=== PATIENT | male | born 1930 | race Caucasian/White ===

== ENCOUNTER 2018-07-14 08:34 | Emergency (ER) | payer MEDICARE ==
[~2018-07-14] VITALS: Ht 172.7 cm; Wt 68.2 kg
[~2018-07-14 08:34] MED LIST: GLUCOPHAGE500 MG PO; GLUCOTROL 5 MG T5 MG PO; PAXIL20 MG PO; RESTORIL15 MG PO; SEROQUEL25 MG PO; VALIUM 2 MG TAB2 MG PO; VIBRAMYCIN 100100 MG PO; ZOCOR80 MG PO
[2018-07-14 08:39] VITALS: Ht 172.7 cm; Wt 68.2 kg
[2018-07-14 09:58] LABS: BASOPHILS 0.3 % (0-2); EOSINOPHILS 4.3 % (0-7); HEMATOCRIT 42.4 % (42.0-54.0); HEMOGLOBIN 14.5 g/dL (13.5-17.5); IMMATURE GRANULOCYTES 0.1 % (0-5); MCH 32.4 pg (26.0-34.0); MCHC 34.2 g/dL (31.0-37.0); MCV 94.6 fL (80.0-100.0); MEAN PLATELET VOLUME 10.4 fL (7.4-10.4); NEUTROPHILS 75.3 % (40-80); RBC 4.48 10x6/uL (4.20-6.10); RDW 13.1 % (11.5-14.5); WBC 8.8 10x3/uL (4.8-10.8)
[2018-07-14 10:15] LABS: PLATELET COUNT 167 10x3/uL (130-400)
[2018-07-14 10:18] LABS: ALBUMIN 3.7 g/dL (3.4-5.0); ALKALINE PHOSPHATASE 83 U/L (46-116); ALT (SGPT) 26 U/L (10-68); BILIRUBIN - TOTAL 0.67 mg/dL (0.2-1.3); CALC OSMOLALITY 282 mosm/kg (275-300); CARBON DIOXIDE 30.1 mmol/L (21.0-32.0); CHLORIDE - SERUM 102 mmol/L (98-107); POTASSIUM - SERUM 3.5 mmol/L (3.5-5.1); PROTEIN - SERUM 7.8 g/dL (6.4-8.2); SODIUM 139 mmol/L (136-145); UREA NITROGEN 15 mg/dL (7-18); eGFR NON AFRICAN AMERICAN 75 mL/min (90-120)
[2018-07-14 10:21] LABS: GLUCOSE 172 mg/dL (74-106)
[2018-07-14 10:32] LABS: APPEARANCE HAZY (CLEAR); BILIRUBIN NEGATIVE (NEGATIVE); COLOR COLORLESS (YELLOW); GLUCOSE 100 mg/dL (NEGATIVE); KETONE NEGATIVE (NEGATIVE); NITRITE NEGATIVE (NEGATIVE); PROTEIN NEGATIVE (NEGATIVE); SPECIFIC GRAVITY 1.005 (1.005-1.020); UROBILINOGEN NORMAL (NORMAL)
[2018-07-14 10:33] LABS: BACTERIA FEW /hpf (NONE SEEN); EPITHELIAL CELLS 0-5 /hpf (0-5); WHITE CELLS - URINE 0-5 /hpf (0-5)
[2018-07-14 17:06] VITALS: BP 146/84
== END 2018-07-14 15:50 | disposition home or self-care (01) ==
LOC: D.ER 08:34
PROVIDERS: Family Medicine
DX: N28.89 Other specified disorders of kidney and ureter (principal); R10.9 Unspecified abdominal pain; R31.9 Hematuria, unspecified

== ENCOUNTER 2018-07-14 21:47 | Emergency (ER) | payer MEDICARE ==
[~2018-07-14] VITALS: Ht 172.7 cm; Wt 81.8 kg
[2018-07-14 21:56] VITALS: Ht 172.7 cm; Wt 81.8 kg
[2018-07-14 23:48] VITALS: BP 129/73
== END 2018-07-14 23:49 ==
LOC: D.ER 21:47
DX: R41.0 Disorientation, unspecified (principal); F03.90 Unspecified dementia, unspecified severity, without behavioral disturbance, psychotic disturbance, mood disturbance, and anxiety

== ENCOUNTER 2018-08-06 23:37 | Emergency (ER) | payer MEDICARE ==
[~2018-08-06] VITALS: Ht 172.7 cm; Wt 97.7 kg
[2018-08-06 23:40] VITALS: Ht 172.7 cm; Wt 97.7 kg
[2018-08-07 03:05] VITALS: BP 174/83
[2018-08-08] MEDS ORDERED: LEVAQUIN750 MG PO (13:04)
== END 2018-08-07 03:05 | disposition home or self-care (01) ==
LOC: D.ER 23:37
DX: M25.561 Pain in right knee (principal); W18.31XA Fall on same level due to stepping on an object, initial encounter; Y93.89 Activity, other specified; Y92.129 Unspecified place in nursing home as the place of occurrence of the external cause

== ENCOUNTER 2018-08-08 10:21 | Emergency (ER) | payer MEDICARE ==
[~2018-08-08] VITALS: Ht 172.7 cm; Wt 86.4 kg
[2018-08-08 10:26] VITALS: Ht 172.7 cm; Wt 86.4 kg
[2018-08-08 10:50] LABS: BASOPHILS 0.4 % (0-2); EOSINOPHILS 1.8 % (0-7); HEMATOCRIT 37.1 % (42.0-54.0); HEMOGLOBIN 12.6 g/dL (13.5-17.5); IMMATURE GRANULOCYTES 0.1 % (0-5); LYMPHOCYTES 24.8 % (15-50); MCH 31.7 pg (26.0-34.0); MCV 93.2 fL (80.0-100.0); MEAN PLATELET VOLUME 10.4 fL (7.4-10.4); MONOCYTES 10.1 % (2-11); NEUTROPHILS 62.8 % (40-80); PLATELET COUNT 144 10x3/uL (130-400); RBC 3.98 10x6/uL (4.20-6.10); WBC 7.2 10x3/uL (4.8-10.8)
[2018-08-08 10:58] LABS: APTT 27.2 SECONDS (22.8-39.4); INR 1.07 (0.85-1.17); PROTIME 13.4 SECONDS (11.6-15.0)
[2018-08-08 11:20] LABS: ALBUMIN 3.3 g/dL (3.4-5.0); ALKALINE PHOSPHATASE 77 U/L (46-116); ALT (SGPT) 24 U/L (10-68); BILIRUBIN - TOTAL 0.54 mg/dL (0.2-1.3); CALC OSMOLALITY 280 mosm/kg (275-300); CALCIUM 8.3 mg/dL (8.5-10.1); CARBON DIOXIDE 28.9 mmol/L (21.0-32.0); CHLORIDE - SERUM 103 mmol/L (98-107); CREATININE - SERUM 0.9 mg/dL (0.6-1.3); GLUCOSE 196 mg/dL (74-106); POTASSIUM - SERUM 3.8 mmol/L (3.5-5.1); SODIUM 137 mmol/L (136-145); UREA NITROGEN 19 mg/dL (7-18); eGFR NON AFRICAN AMERICAN 85 mL/min (90-120)
[2018-08-08 11:31] LABS: CKMB 4.2 U/L (0.0-3.6); CREATINE KINASE 202 UL (21-232); MAGNESIUM - SERUM 1.9 mg/dL (1.8-2.4); THYROID STIMULATING HORMONE 2.53 uIU/mL (0.36-3.74); TROPONIN-I 0.021 ng/mL (0.000-0.060)
[2018-08-08 11:32] LABS: UDS - AMPHET NEGATIVE QUAL (NEGATIVE); UDS - BARB NEGATIVE QUAL (NEGATIVE); UDS - BENZO NEGATIVE QUAL (NEGATIVE); UDS - COCAINE NEGATIVE QUAL (NEGATIVE); UDS - OPIATE NEGATIVE QUAL (NEGATIVE); UDS - PCP NEGATIVE QUAL (NEGATIVE); UDS - THC NEGATIVE QUAL (NEGATIVE)
[2018-08-08 11:34] LABS: APPEARANCE CLEAR (CLEAR); BILIRUBIN NEGATIVE (NEGATIVE); COLOR YELLOW (YELLOW); GLUCOSE 100 mg/dL (NEGATIVE); KETONE NEGATIVE (NEGATIVE); NITRITE NEGATIVE (NEGATIVE); PROTEIN NEGATIVE (NEGATIVE); UROBILINOGEN NORMAL (NORMAL)
[2018-08-08 11:35] LABS: WHITE CELLS - URINE OCC /hpf (0-5)
[2018-08-08] MEDS ORDERED: LEVAQUIN750 MG PO (13:04)
[2018-08-08 13:36] VITALS: BP 178/76
== END 2018-08-08 13:36 | disposition other institution (70) ==
LOC: D.ER 10:21
PROVIDERS: Family Medicine
DX: J18.9 Pneumonia, unspecified organism (principal)

== ENCOUNTER 2018-08-21 00:54 | Emergency (ER) | payer MEDICARE ==
[~2018-08-21] VITALS: Ht 172.7 cm; Wt 84.1 kg
[~2018-08-21 00:54] MED LIST changes: +LEVAQUIN750 MG PO
[2018-08-21 00:57] VITALS: Ht 172.7 cm; Wt 84.1 kg
[2018-08-21 01:16] LABS: BASOPHILS 0.5 % (0-2); EOSINOPHILS 7.3 % (0-7); HEMATOCRIT 37.9 % (42.0-54.0); HEMOGLOBIN 12.8 g/dL (13.5-17.5); IMMATURE GRANULOCYTES 0.3 % (0-5); LYMPHOCYTES 32.9 % (15-50); MCH 31.8 pg (26.0-34.0); MCHC 33.8 g/dL (31.0-37.0); MCV 94.3 fL (80.0-100.0); MEAN PLATELET VOLUME 9.9 fL (7.4-10.4); MONOCYTES 12.5 % (2-11); NEUTROPHILS 46.5 % (40-80); PLATELET COUNT 163 10x3/uL (130-400); RBC 4.02 10x6/uL (4.20-6.10); RDW 13.2 % (11.5-14.5); WBC 7.8 10x3/uL (4.8-10.8)
[2018-08-21 01:24] LABS: INR 1.09 (0.85-1.17); PROTIME 13.6 SECONDS (11.6-15.0)
[2018-08-21 01:37] LABS: ALBUMIN 3.5 g/dL (3.4-5.0); ALKALINE PHOSPHATASE 67 U/L (46-116); ALT (SGPT) 22 U/L (10-68); BILIRUBIN - TOTAL 0.48 mg/dL (0.2-1.3); CALC OSMOLALITY 282 mosm/kg (275-300); CARBON DIOXIDE 29.5 mmol/L (21.0-32.0); CHLORIDE - SERUM 104 mmol/L (98-107); CREATININE - SERUM 0.8 mg/dL (0.6-1.3); GLUCOSE 129 mg/dL (74-106); POTASSIUM - SERUM 4.1 mmol/L (3.5-5.1); PROTEIN - SERUM 7.2 g/dL (6.4-8.2); SODIUM 140 mmol/L (136-145); UREA NITROGEN 17 mg/dL (7-18); eGFR NON AFRICAN AMERICAN > 90 mL/min (90-120)
[2018-08-21] MEDS ORDERED: GLUCOTROL 5 MG T5 MG PO (01:45)
[2018-08-21] MEDS ORDERED: SOLARAZE100 GM TP (01:45)
[2018-08-21] MEDS ORDERED: MOBIC7.5 MG PO (01:46)
[2018-08-21] MEDS ORDERED: GLUCOPHAGE500 MG PO (01:47)
[2018-08-21] MEDS ORDERED: RIVASTIGMINE1.5 MG PO (01:48)
[2018-08-21] MEDS ORDERED: ULTRAM50 MG PO (01:49)
[2018-08-21] MEDS ORDERED: TRAZODONE HCL150 MG PO (01:51)
[2018-08-21 01:52] LABS: CKMB 3.3 U/L (0.0-3.6); CREATINE KINASE 149 UL (21-232); MAGNESIUM - SERUM 1.9 mg/dL (1.8-2.4); PRO BNP 424 pg/mL (0-450); THYROID STIMULATING HORMONE 4.84 uIU/mL (0.36-3.74)
[2018-08-21 01:56] LABS: TROPONIN-I < 0.017 ng/mL (0.000-0.060)
[2018-08-21 02:12] LABS: UDS - AMPHET NEGATIVE QUAL (NEGATIVE); UDS - BARB NEGATIVE QUAL (NEGATIVE); UDS - BENZO NEGATIVE QUAL (NEGATIVE); UDS - COCAINE NEGATIVE QUAL (NEGATIVE); UDS - OPIATE POSITIVE QUAL (NEGATIVE); UDS - PCP NEGATIVE QUAL (NEGATIVE); UDS - THC NEGATIVE QUAL (NEGATIVE)
[2018-08-21 02:15] LABS: APPEARANCE HAZY (CLEAR); BILIRUBIN NEGATIVE (NEGATIVE); COLOR YELLOW (YELLOW); GLUCOSE NEGATIVE (NEGATIVE); KETONE NEGATIVE (NEGATIVE); NITRITE NEGATIVE (NEGATIVE); PROTEIN TRACE mg/dL (NEGATIVE); RED CELLS - URINE >50 /hpf (0-5); UROBILINOGEN NORMAL (NORMAL)
[2018-08-21 04:49] VITALS: BP 156/89
== END 2018-08-21 04:48 | disposition other institution (70) ==
LOC: D.ER 00:54
PROVIDERS: Family Medicine
DX: R60.9 Edema, unspecified (principal)

== ENCOUNTER 2018-08-22 02:29 | Emergency (ER) | payer MEDICARE ==
[~2018-08-22] VITALS: Ht 172.7 cm; Wt 84.1 kg
[~2018-08-22 02:29] MED LIST changes: +MOBIC7.5 MG PO; +RIVASTIGMINE1.5 MG PO; +SOLARAZE100 GM TP; +TRAZODONE HCL150 MG PO; +ULTRAM50 MG PO
[2018-08-22 02:30] VITALS: Ht 172.7 cm; Wt 84.1 kg
[2018-08-22 05:01] VITALS: BP 145/60
== END 2018-08-22 05:02 | disposition home or self-care (01) ==
LOC: D.ER 02:29
DX: S01.01XA Laceration without foreign body of scalp, initial encounter (principal); W18.30XA Fall on same level, unspecified, initial encounter; Y93.89 Activity, other specified; Y92.129 Unspecified place in nursing home as the place of occurrence of the external cause; M54.2 Cervicalgia

== ENCOUNTER → 2018-08-25 10:12 | Outpatient (CLI) | payer MEDICARE ==
[2018-08-22 02:30] VITALS: BMI 28.1
== END | disposition home or self-care (01) ==
LOC: D.NM 08-24 10:00 → D.CT 08-24 11:00 → D.NM 10:12
PROVIDERS: ATTEND Urology
DX: C64.9 Malignant neoplasm of unspecified kidney, except renal pelvis (principal); N28.89 Other specified disorders of kidney and ureter

== ENCOUNTER 2020-01-23 12:26 | Inpatient (IN) | payer MEDICARE ==
[~2020-01-23] VITALS: Ht 172.7 cm; Wt 84.8 kg
[2020-01-23 12:44] VITALS: BP 115/63
[2020-01-23] MEDS ORDERED: LIPITOR10 MG PO (12:49)
[2020-01-23] MEDS ORDERED: BUSPAR5 MG PO (12:49)
[2020-01-23] MEDS ORDERED: HYDROCODON-ACE1 EAC7 (12:50)
[2020-01-23] MEDS ORDERED: SENNA LAXATIVE8.6 MG (12:51)
[2020-01-23] MEDS ORDERED: PAXIL40 MG PO (12:51)
[2020-01-23] MEDS ORDERED: BUPROPION HCL75 MG PO (12:52)
[2020-01-23 13:30] LABS: CALC OSMOLALITY 303 mosm/kg (275-300); CALCIUM 8.6 mg/dL (8.5-10.1); CARBON DIOXIDE 18.4 mmol/L (21.0-32.0); CHLORIDE - SERUM 105 mmol/L (98-107); CREATININE - SERUM 3.5 mg/dL (0.6-1.3); GLUCOSE 154 mg/dL (74-106); POTASSIUM - SERUM 5.4 mmol/L (3.5-5.1); SODIUM 141 mmol/L (136-145); UREA NITROGEN 69 mg/dL (7-18); eGFR NON AFRICAN AMERICAN 18 mL/min (90-120)
[2020-01-23 13:37] LABS: HEMATOCRIT 37.7 % (42.0-54.0); HEMOGLOBIN 12.5 g/dL (13.5-17.5); MCH 30.1 pg (26.0-34.0); MCHC 33.2 g/dL (31.0-37.0); MCV 90.8 fL (80.0-100.0); MEAN PLATELET VOLUME 11.2 fL (7.4-10.4); PLATELET COUNT 109 10x3/uL (130-400); RBC 4.15 10x6/uL (4.20-6.10); RDW 13.3 % (11.5-14.5); WBC 21.3 10x3/uL (4.8-10.8)
[2020-01-23 13:41] LABS: APTT 36.6 SECONDS (22.8-39.4); INR 1.53 (0.85-1.17); PROTIME 18.3 SECONDS (11.6-15.0)
[2020-01-23 13:54] LABS: ALBUMIN 2.4 g/dL (3.4-5.0); ALKALINE PHOSPHATASE 113 U/L (30-120); ALT (SGPT) 65 U/L (10-68); BILIRUBIN - TOTAL 0.87 mg/dL (0.2-1.3); CKMB 49.6 U/L (0.0-3.6); MAGNESIUM - SERUM 1.6 mg/dL (1.8-2.4); PROTEIN - SERUM 7.1 g/dL (6.4-8.2); THYROID STIMULATING HORMONE 2.24 uIU/mL (0.36-3.74)
[2020-01-23 13:55] LABS: CREATINE KINASE 7 UL (21-232)
[2020-01-23 14:05] LABS: BACTERIA MANY HPF (NONE SEEN); BILIRUBIN NEGATIVE (NEGATIVE); EPITHELIAL CELLS RARE /hpf (0-5); KETONE SMALL mg/dL (NEGATIVE); NITRITE NEGATIVE (NEGATIVE); UDS - AMPHET NEGATIVE QUAL (NEGATIVE); UDS - BARB NEGATIVE QUAL (NEGATIVE); UDS - BENZO NEGATIVE QUAL (NEGATIVE); UDS - COCAINE NEGATIVE QUAL (NEGATIVE); UDS - OPIATE NEGATIVE QUAL (NEGATIVE); UDS - PCP NEGATIVE QUAL (NEGATIVE); UDS - THC NEGATIVE QUAL (NEGATIVE); UROBILINOGEN NORMAL mg/dL (< 2); WHITE CELLS - URINE >50 HPF (0-1)
[2020-01-23 14:06] LABS: AMORPHOUS SEDIMENT <1+ LPF (NONE SEEN)
[2020-01-23 15:28] LABS: LYMPHOCYTES 8 % (15-50); MONOCYTES 4 % (2-11); NEUTROPHILS 70 % (40-80); TOXIC GRANULATION 1+
[2020-01-23 15:29] LABS: PLATELET ESTIMATE NORMAL; TEAR DROP CELLS 2+; VACUOLES 2+
[2020-01-23 18:56] LABS: C-REACTIVE PROTEIN 92.5 mg/dL (0.0-0.9)
[2020-01-23 19:00] VITALS: BP 177/92
[2020-01-23 19:01] LABS: ERYTHROCYTE SEDIMENTATION RATE 75 mm/hr (0-30)
[2020-01-23 19:23] LABS: THYROID STIMULATING HORMONE 2.65 uIU/mL (0.36-3.74)
[2020-01-23 19:26] LABS: CKMB 41.4 U/L (0.0-3.6); CREATINE KINASE 11575 UL (21-232)
[2020-01-23 19:27] LABS: TROPONIN-I 1.321 ng/mL (0.000-0.060)
--- NOTE | 2020-01-23 20:00 | NUR ---
ASSUMED CARE OF PATIENT, RESTLESS ON STRETCHER, DRIP INFUSING PER ORDER, VITAL SIGNS STABLE, SIGNS OF AMS, MOANING, NO ORIENTATION, PATIENT ON BIPAP.
[2020-01-23 20:29] VITALS: BP 131/83
--- NOTE | 2020-01-23 21:00 | NUR ---
ALANIZ PLACED PER PROVIDER ORDER, RED COLORED URINE RETURN, PLACED WITHOUT DIFFICULTY.
[2020-01-23 22:00] VITALS: BP 121/77
--- NOTE | 2020-01-23 22:00 | NUR ---
RESTING SOMEWHAT BETTER, COVID TEST SENT, VITAL SIGNS STABLE.
[2020-01-23 23:28] VITALS: BP 123/78
[2020-01-24] VITALS (16 sets, daily range): BP systolic 104–138; BP diastolic 64–110; Ht 172.7 cm; Wt 84.8 kg
--- NOTE | 2020-01-24 01:28 | NUR ---
REC'D PATIENT AT 2346. PLACED ON BIPAP. UNABLE TO GET HISTORY FROM PATIENT.
[2020-01-24 01:54] LABS: CKMB 28.4 U/L (0.0-3.6)
[2020-01-24 01:57] LABS: CREATINE KINASE 9276 UL (21-232); TROPONIN-I 1.697 ng/mL (0.000-0.060)
--- NOTE | 2020-01-24 07:04 | NUR ---
DR PENNINGTON NOTIFIED OF PT CONSULT. HE AGREES TO SEE PT
--- NOTE | 2020-01-24 07:16 | NUR ---
DR HUA NOTIFIED OF RENAL CONSULT AND AGREES TO SEE THE PT AND SPEAK WITH THE DAUGHTER
--- NOTE | 2020-01-24 07:40 | NUR ---
pt resting with bipap in place, pt confused and does not follow commands, positioned for comfort, will monitor
[2020-01-24 08:03] LABS: BASOPHILS 0.1 % (0-2); EOSINOPHILS 0 % (0-7); HEMATOCRIT 34.9 % (42.0-54.0); HEMOGLOBIN 11.7 g/dL (13.5-17.5); IMMATURE GRANULOCYTES 1.2 % (0-5); LYMPHOCYTES 7.1 % (15-50); MCH 30.2 pg (26.0-34.0); MCHC 33.5 g/dL (31.0-37.0); MCV 90.2 fL (80.0-100.0); MEAN PLATELET VOLUME 11.1 fL (7.4-10.4); MONOCYTES 1.3 % (2-11); NEUTROPHILS 90.3 % (40-80); PLATELET COUNT 69 10x3/uL (130-400); RBC 3.87 10x6/uL (4.20-6.10); RDW 13.6 % (11.5-14.5); WBC 15.8 10x3/uL (4.8-10.8)
[2020-01-24 08:12] LABS: % SATURATION 4 % (15-55); IRON 8 ug/dl (35-150); TOTAL IRON BIND CAPACITY 164 ug/dl (260-445); UNSAT IRON BIND CAPACITY 156 ug/dl (150-375)
[2020-01-24 08:39] LABS: ALBUMIN 2.1 g/dL (3.4-5.0); ALKALINE PHOSPHATASE 101 U/L (30-120); ALT (SGPT) 67 U/L (10-68); BILIRUBIN - TOTAL 0.67 mg/dL (0.2-1.3); CALCIUM 7.8 mg/dL (8.5-10.1); CARBON DIOXIDE 19.7 mmol/L (21.0-32.0); CHLORIDE - SERUM 110 mmol/L (98-107); CHOL - HDL RATIO 7.6 ratio (2.3-4.9); CHOLESTEROL, TOTAL 76 mg/dL (0-200); CKMB 25.5 U/L (0.0-3.6); CREATININE - SERUM 4.2 mg/dL (0.6-1.3); GLUCOSE 201 mg/dL (74-106); HDL CHOLESTEROL 10 mg/dL (32-96); LDH 582 U/L (85-227); LDL CHOLESTEROL 27 mg/dL (0-100); LDL-HDL RATIO 2.7 ratio (1.5-3.5); MAGNESIUM - SERUM 1.8 mg/dL (1.8-2.4); PHOSPHOROUS 4.4 mg/dL (2.5-4.9); POTASSIUM - SERUM 5.1 mmol/L (3.5-5.1); PROTEIN - SERUM 6.3 g/dL (6.4-8.2); SODIUM 147 mmol/L (136-145); TRIGLYCERIDE 199 mg/dL (30-200); eGFR NON AFRICAN AMERICAN 14 mL/min (90-120)
[2020-01-24 08:40] LABS: CALC OSMOLALITY 325 mosm/kg (275-300); CREATINE KINASE 7853 UL (21-232); FERRITIN 1579 ng/mL (3-244); TROPONIN-I 1.217 ng/mL (0.000-0.060); UREA NITROGEN 90 mg/dL (7-18)
--- NOTE | 2020-01-24 09:30 | NUR ---
DR. HUA HERE SEEING PATIENT
--- NOTE | 2020-01-24 14:24 | NUR ---
bipap in place, pt moving about in bed, attemped to reorient, will monitor
--- NOTE | 2020-01-24 17:00 | NUR ---
HOSPICE NURSE HERE EVALUATING PATIENT
--- NOTE | 2020-01-25 18:26 | MORECARE ---
CASE MANAGEMENT DISCHARGE SUMMARY PATIENT: PHILLIP MISTRY UNIT: [id number] ADM DATE: 01/23/20 AGE: 89 : 32 SEX: M ROOM/BED: D.2314 AUTHOR: DAQUAN DOYLE PHYSICIAN: REFERRING PHYSICIAN: JESSIKA FUNK MD DATE OF SERVICE: 01/25/20 Discharge Plan Patient Name: PHILLIP MISTRY [facility] [facility] 1930 Planned Disposition: Anticipated Discharge Date: Discharge Date: 01/24/2020 Expected LOS: Initial Reviewer: [email or web address] Initial Review Date: 01/23/2020 Generated: 01/25/20 7:26 pm Comments DCP- Discharge Planning Updated by [email or web address]: Kenia Agrawal on 01/24/20 6:[address] CM received notice of [facility] referral on patient. CM called and spoke with Yassine and faxed over referral. [facility] to eval and see if patient is [facility] appropriate. Patient may d/c back to [place] with hospice care pending eval. External Providers External Provider: [facility](provides inp Next Contact Date: Service Request Date: Service Type: Resolution: Reviewer: Comments: Patient Name: PHILLIP MISTRY Page [phone] at 1826 All edits/amendments must be made on the electronic document DICTATION DATE: 01/25/201825 LADLE POURER: KRISTINE 01/25/201825 RPT#: [id number] DC DATE:01/24/20 STATUS: DIS IN [facility] [address] [place] [address] END OF REPORT
== END 2020-01-24 19:55 | disposition hospice, inpatient (51) | DRG 871 ==
LOC: D.ER 12:26 → D.ICU 18:53 → D.EDHOLD 18:53 → D.ICU 20:56
PROVIDERS: Family Medicine; ADMIT Family Medicine; ATTEND Family Medicine
PROC: 5A09357 Assistance with Respiratory Ventilation, Less than 24 Consecutive Hours, Continuous Positive Airway Pressure (ICD-10-PCS; principal; 2020-01-24)
DX: A41.9 Sepsis, unspecified organism (principal); N17.0 Acute kidney failure with tubular necrosis; G93.41 Metabolic encephalopathy; J96.01 Acute respiratory failure with hypoxia; U07.1 COVID-19; I21.A1 Myocardial infarction type 2; N39.0 Urinary tract infection, site not specified; E87.2 Acidosis; M62.82 Rhabdomyolysis; N17.9 Acute kidney failure, unspecified; E87.0 Hyperosmolality and hypernatremia; E11.9 Type 2 diabetes mellitus without complications; E87.5 Hyperkalemia; D50.9 Iron deficiency anemia, unspecified; Z66 Do not resuscitate; I48.91 Unspecified atrial fibrillation; F03.90 Unspecified dementia, unspecified severity, without behavioral disturbance, psychotic disturbance, mood disturbance, and anxiety; F41.8 Other specified anxiety disorders; M19.90 Unspecified osteoarthritis, unspecified site; M81.0 Age-related osteoporosis without current pathological fracture; N30.80 Other cystitis without hematuria

== ENCOUNTER 2020-01-24 20:05 | Inpatient (IN) | payer OTHER ==
[~2020-01-24] VITALS: Ht 172.7 cm; Wt 84.4 kg
[~2020-01-24 20:05] MED LIST changes: +BUPROPION HCL75 MG PO; +BUSPAR5 MG PO; +HYDROCODON-ACE1 EAC7; +LIPITOR10 MG PO; +PAXIL40 MG PO; +SENNA LAXATIVE8.6 MG
[2020-01-24 20:21] VITALS: BP 115/69; BMI 28.3
--- NOTE | 2020-01-24 21:00 | NUR ---
PATIENT TO THE FLOOR. HOLLERING OUT IN PAIN, NO ORDERS STARTED FROM HOSPICE ORDERS. CALLED HOSPICE NURSE FOR ORDER CLARIFICATION. WILL PUT ORDERS IN AND FOLLOW. ALANIZ INTACT, PIV TO THE LEFT HAND PATENT. NASAL CANNULA WITH 02 AT 2L. BED IN LOWEST LOCKED POSITION WITH SIDE RIALS UP X3.
[2020-01-25 10:09] VITALS: BP 108/58
[2020-01-25 12:38] VITALS: Ht 172.7 cm; Wt 84.4 kg
--- NOTE | 2020-01-25 19:30 | NUR ---
RECIEVED PT LAYING IN BED WITH EYES CLOSED. PT IS UNRESPONSIVE.PT IS ON HOSPICE. COMFORT MEASURES .PT HAS A BAR ATTENDANT PUMP WITH MORPHINE 1 MG CONTINUIOUS.PT WITH A HEARTRATE OF 41. RESP ARE SHALLOW.SAFETY MEASURES ARE IN PLACE. WILL CONTINUE TO MONITOR.
[2020-01-25 20:00] VITALS: BP 107/48
--- NOTE | 2020-01-26 03:13 | NUR ---
HOSPICE CALLED AND FAMILY NOTIFIED OF PATIENT'S PASSING AT 0250
--- NOTE | 2020-01-26 05:22 | NUR ---
PATIENT PLACED IN BODY BAG AFTER REMOVING PIV FROM LEFT HAND CATH INTACT AND ALANIZ CATH. [facility] TOOK PATIENT VIA GURNEY.
== END 2020-01-26 05:24 | DRG 951 ==
LOC: D.M2 20:05 → D.ICU 20:05 → D.M2 21:20
PROVIDERS: ADMIT Legal Medicine; ATTEND Legal Medicine
DX: Z51.5 Encounter for palliative care (principal)